=== PATIENT | male | born 1995 | race Two or more races ===

== ENCOUNTER 2018-10-27 13:39 | Emergency (ER) | payer SELFPAY ==
[2018-10-27 13:54] VITALS: BMI 25.8
--- NOTE | 2018-10-27 13:56 | PDOC ---
Attending Attestation - Resident Resident Name: Dick Wilkes - ED Attending Attestation I have performed the following: I have examined & evaluated the patient, The case was reviewed & discussed with the resident, I agree w/resident's findings & plan - HPI HPI: 10/27/18 14:49 The patient is a 23 year old male, with no significant past medical history, who presents to the emergency department with, gradual onset left flank pain radiating to the groin. Patient endorses an associated one episode of emesis and pain when he urinated which he is unaware if it is dysuria or his flank pain. He denies any recent fevers, chills, headache or dizziness. He denies any recent diarrhea or constipation. He denies any recent chest pain or shortness of breath. He denies any recent hematuria. Allergies: NKDA <Justino Galvan - Last Filed: 10/27/18 14:49> - Physicial Exam PE: 10/27/18 16:30 Agree with resident exam. Patient is alert and oriented and in no acute distress. Abdomen is soft, non tender and non distended. + L CVA tenderness. - Medical Decision Making 10/27/18 16:31 PT presents to the ED complaining of the acute onset of severe L flank pain differential included renal stone, less likely pyelonephritis. Denies testicular pain and testicular exam unremarkable. Pain greatly improved after toradol. Renal US shows L sided hydro. Will discharge home with urology follow up. <Yael Rodriguez - Last Filed: 10/27/18 16:34> Attestations - Attestations 10/27/18 14:49 Documentation prepared by Justino Galvan, acting as medical record assistant for Yael Rodriguez MD. <Justino Galvan - Last Filed: 10/27/18 14:49>
--- NOTE | 2018-10-27 13:56 | PDOC ---
History of Present Illness - General Chief Complaint: Pain, Acute Stated Complaint: KIDNEY STONES - History of Present Illness Initial Comments: The pt is a 23M w/ no reported PMH who presents for evaluation of L flank pain that gradually started this AM and has since worsened. He states the pain is crampy/sharp, constant, not worsened/alleviated by anything he can identify, and he has never had pain like this before. Denies dysuria, hematuria, penile discharge, scrotal redness. Endorses NBNB vomiting x2 associated w/ the pain Denies previous kidney stones. Denies fevers/chill, recent illness, BOYLE, vision changes, chest pain, diarrhea, blood in his stool, or changes in sensation/strength 10/27/18 14:04 Past History - Past Medical History Allergies/Adverse Reactions: Allergies Allergy/AdvReac Type Severity Reaction Status Date / Time No Known Allergies Allergy Verified 10/27/18 13:53 Home Medications: Ambulatory Orders No Home Medications 0 dose .ROUTE UTDICT 03/22/14 Ibuprofen 800 mg PO TID 7 Days #21 tablet 10/27/18 COPD: No - Immunization History Immunization Up to Date: Yes - Suicide/Smoking/Psychosocial Hx Smoking Status: No Smoking History: Never smoked Have you smoked in the past 12 months: No Number of Cigarettes Smoked Daily: 0 Cigars Per Day: 0 Information on smoking cessation initiated: No Hx Alcohol Use: No Drug/Substance Use Hx: No Review of Systems - Review of Systems Able to Perform ROS?: Yes Comments:: GENERAL/CONSTITUTIONAL: No fever or chills. No weakness HEAD, EYES, EARS, NOSE AND THROAT: No change in vision. No ear pain or discharge. No sore throat CARDIOVASCULAR: No chest pain or shortness of breath RESPIRATORY: Denies cough, hemoptysis GASTROINTESTINAL: No diarrhea or constipation GENITOURINARY: per HPI MUSCULOSKELETAL: No joint or muscle swelling or pain. No neck or back pain SKIN: No rash NEUROLOGIC: No headache, vertigo, loss of consciousness, or change in strength/ sensation ENDOCRINE: No increased thirst. No abnormal weight change HEMATOLOGIC/LYMPHATIC: No anemia, easy bleeding, or history of blood clots ALLERGIC/IMMUNOLOGIC: No hives or skin allergy 10/27/18 13:56 Is the patient limited Dutch proficient: No *Physical Exam - Vital Signs Last Vital Signs Temp Pulse Resp BP Pulse Ox 98.8 F 112 H 18 143/80 100 10/27/18 13:39 10/27/18 13:39 10/27/18 13:39 10/27/18 13:39 10/27/18 13:39 - Physical Exam Comments: GENERAL: Awake, alert, and fully oriented, in mild distress HEAD: No signs of trauma, normocephalic, atraumatic EYES: PERRLA, EOMI, sclera anicteric, conjunctiva clear ENT: Hearing grossly normal, nares patent, oropharynx clear without exudates. Moist mucosa LUNGS: No distress, speaks full sentences, clear to auscultation bilaterally HEART: Regular rate and rhythm, normal S1 and S2, no murmurs appreciated, peripheral pulses normal and equal bilaterally ABDOMEN: Soft, LLQ/L flank TTP w/o rebound or guarding, non-distended, +BS : Testicles with normal lie and NTTP, no erythema or swelling, no inguinal hernia palpated, no penile discharge or erythema EXTREMITIES : Normal inspection, Normal range of motion, no edema. No clubbing or cyanosis NEUROLOGICAL: Cranial nerves II through XII grossly intact. Normal speech, no focal sensorimotor deficits SKIN: Warm, Dry 10/27/18 13:56 Moderate Sedation - Procedure Monitoring Vital Signs: Procedure Monitoring Vital Signs Temperature 98.8 F 10/27/18 13:39 Pulse Rate 112 H 10/27/18 13:39 Respiratory Rate 18 10/27/18 13:39 Blood Pressure 143/80 10/27/18 13:39 O2 Sat by Pulse Oximetry (%) 100 10/27/18 13:39 Medical Decision Making - Medical Decision Making The patient is a 23M who presents for evaluation of 1d of L flank pain likely 2/ 2 nephrolithiasis Ddx: Testicular torsion, nephrolithiasis, hernia, STI, UTI/pyelo No evidence of testicular torsion or hernia UA w/o evidence of UTI Renal US w/ mild hydronephrosis Toradol given for pain Patient likely w/ nephrolithiasis Rx for Ibuprofen 800mg PO TID PRN Plan for D/C w/ PCP and Urology f/u Discharge instructions and return precautions given Patient in agreement and verbalized understanding Dispo: home *DC/Admit/Observation/Transfer Diagnosis at time of Disposition: Nephrolithiasis - Discharge Dispostion Disposition: HOME Condition at time of disposition: Improved Decision to Admit order: No - Prescriptions Prescriptions: Ibuprofen 800 mg PO TID 7 Days #21 tablet - Referrals Referrals: Tobi Alva MD [Staff Physician] - - Patient Instructions Printed Discharge Instructions: DI for Kidney Stones Additional Instructions: You were seen in the Emergency Department today for evaluation of 1 day of left flank pain. You were found to have a kidney stone. Read the handout provided at discharge. A prescription for Ibuprofen 800mg three times daily was sent to the pharmacy that you specified, take as directed. Follow up with your primary care provider and Urology within the next 3-5 days. Return to the Emergency Department if you develop fevers, increased pain with urination, blood in your urine, decreased urination, worsening symptoms, or any new/concerning symptoms. - Post Discharge Activity
[2018-10-27] MEDS ORDERED: KETOROLAC TROMETHAMINE 30 MG/1 ML VIAL IVPUSH ONE (14:04)
[2018-10-27] MEDS ORDERED: KETOROLAC TROMETHAMINE 30 MG/1 ML VIAL ONE (14:43)
[2018-10-27 15:13] LABS: URINE APPEARANCE CLEAR; URINE BILIRUBIN NEGATIVE (<2.0 mg/dL); URINE COLOR DKYELLOW; URINE GLUCOSE (UA) NEGATIVE (NEGATIVE); URINE KETONE TRACE (NEGATIVE); URINE LEUK ESTERASE NEGATIVE (NEGATIVE); URINE NITRITE NEGATIVE (NEGATIVE); URINE PROTEIN 3+ (NEGATIVE); URINE UROBILINOGEN NEGATIVE mg/dL (0.2-1.0)
[2018-10-27 15:25] LABS: URINE MUCUS MANY
[2018-10-27 16:54] VITALS: BP 132/72; PULSE 95; TEMP 98.1
--- NOTE | 2018-10-28 16:44 | EKG ---
Test Reason : Blood Pressure : / mmHG Vent. Rate : 104 BPM Atrial Rate : 104 BPM P-R Int : 150 ms QRS Dur : 078 ms QT Int : 330 ms P-R-T Axes : 055 047 026 degrees QTc Int : 433 ms SINUS TACHYCARDIA OTHERWISE NORMAL ECG NO PREVIOUS ECGS AVAILABLE Confirmed by Jaye Dickerson ([id number]) on 10/28/2018 4:44:04 PM Referred By: Confirmed By:Jaye Dickerson
== END 2018-10-27 16:55 | disposition home or self-care (01) ==
LOC: JER 13:39
PROC: 3E0333Z Introduction of Anti-inflammatory into Peripheral Vein, Percutaneous Approach (ICD-10-PCS; principal; 2018-10-27)
DX: N20.0 Calculus of kidney (principal)
CPT/HCPCS: 76775-TC; 81003; 81015; 87086; 93005; 93010; 99283-25